=== PATIENT | female | born 1995 | race Two or more races ===

== ENCOUNTER 2020-12-08 15:26 | Inpatient (IN) | payer OTHER ==
[~2020-12-08] VITALS: Ht 154.9 cm; Wt 77.1 kg
--- NOTE | 2020-12-08 15:35 | NUR ---
PATIENT IS REFFERED BY DR. PEREZ TO EMERGENCY ROOM TO BE OPERATED ON FOR AN ACTOPIC .
--- NOTE | 2020-12-08 17:40 | NUR ---
EVALUA PTE. SE EDUCA A PTE SOBRE [place] MEDICO. PTE REFIERE COMPRENDER. SE REALIZAN MUESTRAS DE LABORATORIO BAJO MEDIDAS ASEPTICAS. SE ADMINISTRA IV'S MAICO ORDEN MEDICA. SE NOTIFICA A BANCO DE SHENA 2 UNIDADES DE PRBC HOLD A SandyALEXANDRA Y SE ENVIA AL LABORATORIO. SE ARELIS A PTE EN CAMA CON BARANDAS ELEVADAS.
== END 2020-12-09 11:46 | disposition home or self-care (01) | DRG 819 ==
LOC: ER 15:26 → O/R 17:38 → SEC-K 17:38 → O/R 18:00 → OB/GYN 23:40
PROVIDERS: ADMIT Obstetrics & Gynecology; ATTEND Obstetrics & Gynecology
PROC: 0UB50ZZ Excision of Right Fallopian Tube, Open Approach (ICD-10-PCS; 2020-12-08)
PROC: 10T20ZZ Resection of Products of Conception, Ectopic, Open Approach (ICD-10-PCS; principal; 2020-12-08 21:00)
DX: O00.101 Right tubal pregnancy without intrauterine pregnancy (principal); Z20.822 Contact with and (suspected) exposure to COVID-19

== ENCOUNTER → 2020-12-08 | Outpatient (CLI) | payer OTHER | END | disposition home or self-care (01) | LOC: PRENATAL 13:30 | PROVIDERS: ATTEND Obstetrics & Gynecology Maternal & Fetal Medicine | DX: O26.851 Spotting complicating pregnancy, first trimester (principal); O36.80X1 Pregnancy with inconclusive fetal viability, fetus 1; Z36.89 Encounter for other specified antenatal screening; Z3A.08 8 weeks gestation of pregnancy ==

== ENCOUNTER 2021-05-11 08:00 | Outpatient (CLI) | payer OTHER | END 2021-05-11 08:30 | disposition home or self-care (01) | LOC: PPH VACUNA 08:00 | PROVIDERS: ATTEND Emergency Medicine Pediatric Emergency Medicine | DX: Z23 Encounter for immunization (principal) ==